=== PATIENT | female | born 2000 | race Caucasian/White ===

== ENCOUNTER 2023-09-03 11:25 | Emergency (ER) | payer BC ==
[~2023-09-03] VITALS: Ht 165.1 cm; Wt 90.7 kg
[2023-09-03] MEDS ORDERED: CETIRIZINE HYDR10 MG PO (11:40)
== END 2023-09-03 14:12 | disposition home or self-care (01) ==
LOC: ED 11:25
DX: M31.19 Other thrombotic microangiopathy (principal); M25.511 Pain in right shoulder; M25.561 Pain in right knee; M54.2 Cervicalgia; Z88.1 Allergy status to other antibiotic agents; Z88.8 Allergy status to other drugs, medicaments and biological substances; Z88.2 Allergy status to sulfonamides; Z87.891 Personal history of nicotine dependence